=== PATIENT | male | born 1955 | race Caucasian/White ===

== ENCOUNTER 2019-05-22 15:08 | Outpatient (CLI) | payer MEDICARE, MEDICAID ==
--- NOTE | 2019-05-22 16:49 | MRI ---
MRI lumbar spine noncontrast: HISTORY: Lumbar spinal stenosis. Right leg pain. Numbness. COMPARISON: None. Correlation: Lumbar spine CT 05/18/2019 FINDINGS: Heterogeneous marrow signal intensity of the visualized vertebra likely due to senescent change. Type I and type II Modic changes at the L5-S1 disc space Appropriate signal intensity of the paraspinal muscles Appropriate signal intensity in the visualized solid organs Conus medullaris terminates at the mid T12 level T12-L1:Adequate disc hydration. No significant central canal stenosis or significant neural foraminal narrowing L1-L2:Adequate disc hydration. No significant central canal stenosis or significant neural foraminal narrowing L2-L3:Desiccation with mild loss of disc space height. Broad-based disc bulge minimally flattens the ventral thecal sac. Mild central canal stenosis. Bilaterally the neural foramina are patent. Trace amount of fluid in both facet joints. L3-L4:Mild loss of disc space height. Broad-based disc bulge flattens the thecal sac. Mild to moderat e central canal stenosis. Mild narrowing of both subarticular zones. Disc material abuts but does not obscure either traversing L4 nerve root. Mild facet hypertrophy. Small amount of fluid in both fa cet joints. There is a sequestered disc fragment in the right subarticular zone, superior to the L3-L4 disc space. This sequestered disc fragment measures 1.1 cm cranial caudal x 0.9 cm mediolateral x 0.6 cm anterior posterior. There is displacement of the traversing right L4 nerve root. Disc material encroaches into the right neural foramen related result in moderate to severe right neural f oraminal narrowing. Moderate left neural foraminal narrowing is also noted. L4-L5:Desiccation with moderate loss of disc space height. Broad-based disc bulge with a central disc protrusion. Associated T2 hyperintensity, compatible with annular fissure. Mild to moderate central canal stenosis. Narrowing of both subarticular zones, left greater than right. Mass effect wi th minimal obscuration the traversing right L5 nerve root. Mass effect and partial obscuration traversing left L5 nerve root. Moderate bilateral neural foraminal narrowing L5-S1:Severe loss of disc space height. Broad-based disc bulge without significant stenosis of the th ecal sac. Encroachment upon the right subarticular zone. Minimal mass effect without obscuration traversing right S1 nerve root. Left subarticular zone is unremarkable. Moderate to severe bilateral neural foraminal narrowing. IMPRESSION: 1. Degenerative disc disease at L3-L4 and L4-L5 described above. [id number] central canal steno sis 2. Moderate to severe right neural foramina due to sequestered disc fragment. Sequestered disc fragme nt also abuts and displaces the traversing right L4 nerve root. 3. Annular fissure at L4-L5. Left greater than right narrowing of the subarticular zone at L4-L5. Min imal obscuration of the traversing right L5 nerve root and partial obscuration traversing left L5 nerve root. Transcribed Date/Time: 05/22/2019 6:08 PM
== END 2019-05-22 15:09 | disposition home or self-care (01) ==
LOC: TBSIIMAG 15:08
PROVIDERS: ATTEND Internal Medicine
DX: M51.16 Intervertebral disc disorders with radiculopathy, lumbar region (principal); M48.061 Spinal stenosis, lumbar region without neurogenic claudication; M62.830 Muscle spasm of back; Q05.7 Lumbar spina bifida without hydrocephalus
CPT/HCPCS: 72148

== ENCOUNTER 2019-07-09 08:38 | Day surgery (SDC) | payer MEDICARE, MEDICAID ==
[2019-07-08 11:51] VITALS: BMI 16.9
[2019-07-09] MEDS ORDERED: Thrombin 5000 UNITS/5 ML VIAL ONE (09:08)
[2019-07-09] MEDS ORDERED: Sodium Chloride 0.9% 10 ML ONE (09:08)
[2019-07-09] MEDS ORDERED: Fentanyl 100 MCG/2 ML VIAL ONE ×5 (09:37→12:40)
[2019-07-09 09:42] LABS: Hemoglobin 14.6 g/dL (14.0-18.0); Mean Corpuscular HGB CONC 34.4 g/dL (32.0-36.0); Mean Corpuscular Hemoglobin 35.1 pg (27.0-31.0); Mean Platelet Volume 7.4 fL (7.4-10.4); Platelet Count 123 thou/uL (130-400); RBC Distribution Width 11.7 % (11.5-14.5); Red Blood Cell (RBC) Count 4.17 mill/uL (4.70-6.10); White Blood Cell (WBC) Count 9.7 thou/uL (4.8-10.8)
[2019-07-09 09:58] LABS: Anion Gap 12 mmol/L (10-20); BUN (Urea Nitrogen) 10 mg/dL (8.4-25.7); Calc. Creatinine Clearance 75 mL/min (70-130); Calcium 9.2 mg/dL (7.8-10.44); Carbon Dioxide 27 mmol/L (23-31); Chloride 97 mmol/L (98-107); Estimated GFR-MDRD Greater than 90; Glucose 86 mg/dL (80-115); PTT 29.5 SEC (22.9-36.1); Sodium 132 mmol/L (136-145)
[2019-07-09] MEDS ORDERED: Lidocaine 1% PF 5 ML VIAL ONE (10:02)
[2019-07-09] MEDS ORDERED: Ondansetron PF 4 MG/2 ML Vial ONE (10:02)
[2019-07-09] MEDS ORDERED: ePHEDrine/0.9% NaCl/PF SYRINGE 50 mg/10 ml ONE (10:02)
[2019-07-09] MEDS ORDERED: Dexamethasone 20 MG/5 ML VIAL ONE (10:02)
[2019-07-09] MEDS ORDERED: Rocuronium Bromide 10 MG/ML (10ML VIAL) ONE (10:02)
[2019-07-09] MEDS ORDERED: PROPOFOL 200 MG/20 ML VIAL ONE (10:02)
[2019-07-09] MEDS ORDERED: Meperidine HCl/PF 25 MG/ML VIAL SLOW IVP PRN (11:29)
[2019-07-09] MEDS ORDERED: PACU-Morphine 4MG/ML VIAL SLOW IVP PRN (11:29)
[2019-07-09] MEDS ORDERED: HYDROmorphone 2 MG/ML VIAL SLOW IVP PRN (11:29)
[2019-07-09] MEDS ORDERED: Promethazine HCl 25 MG/ML VIAL SLOW IVP PRN (11:29)
[2019-07-09] MEDS ORDERED: SUGAMMADEX SODIUM 200 MG/2 ML VIAL ONE (11:36)
[2019-07-09] MEDS ORDERED: Mag-Al 1200 mg/1200 mg/30 ML UDCUP PO PRN (12:05)
[2019-07-09] MEDS ORDERED: Bisacodyl 10 MG SUPP PR PRN (12:05)
[2019-07-09] MEDS ORDERED: Milk Of Magnesia 30 ML UDCUP PO PRN (12:05)
[2019-07-09] MEDS ORDERED: Acetaminophen/Codeine 30-300mg Tablet PO PRN (12:05)
[2019-07-09] MEDS ORDERED: traMADol HCl 50 MG TAB PO PRN (12:05)
[2019-07-09] MEDS ORDERED: Acetaminophen 325 MG TAB PO PRN (12:05)
[2019-07-09] MEDS ORDERED: Fleet Enema 133 ML BOT PR PRN (12:05)
[2019-07-09] MEDS ORDERED: Ondansetron PF 4 MG/2 ML Vial IVP PRN (12:05)
[2019-07-09] MEDS ORDERED: HYDROmorphone 0.5 MG/0.5 ML SYRINGE ONE ×3 (12:30→13:20)
--- NOTE | 2019-07-09 13:41 | OP ---
DATE OF PROCEDURE: 07/09/2019 BAND BIAS MACHINE OPERATOR: Eloy Barillas PA-C PREPROCEDURE DIAGNOSES: Low back and right lower extremity pain with lumbar disk extrusion with paracentral and lateral components L3-L4 and L4-L5. POSTPROCEDURE DIAGNOSES: Low back and right lower extremity pain with lumbar disk extrusion with paracentral and lateral components L3-L4 and L4-L5. PROCEDURES PERFORMED: 1. Right L3-L4, right L4-L5 hemilaminotomies, foraminotomies. 2. Right L3-L4 transfacet approach for foraminal disk extrusion to ensure freedom of the exiting right L3 nerve root. 3. Use of operative microscope for microdissection. DESCRIPTION OF PROCEDURE: After informed consent was obtained from the patient, the patient was brought to the OR. Proper patient, pause, and identification were carried out. He was placed under excellent general endotracheal anesthesia and positioned prone on the OR table. All appropriate points were padded. We identified L3, L4, L5 dorsal spines. A linear cem was drawn, and this region was sterilely cleansed, prepared, and draped. Proper patient, pause, and identification were carried out. The wound was then opened with a combination of sharp, monopolar, and blunt dissection, and the right L3-L4 and right L4-L5 hemilamina were exposed. Localization film confirmed our area of interest. We then performed a right L3-L4 and right L4-L5 hemilaminotomies and foraminotomies with excellent decompression of the common dural tube. We started at the right L4-L5 segment and paracentral diskectomy and ensured freedom of the traversing right L5 nerve root. We then turned our attention to the right L3-L4 segment performed a hemilaminotomy at that segment with paracentral diskectomy for decompression of the exiting right L4 nerve root. We then worked up into the foramen, the exiting right L3 nerve root, removed a large disk extrusion that was superiorly migrated. We ensured freedom of the exiting right L3 nerve root and its early takeoff in the traversing right L4 nerve root. Copious irrigation occurred throughout as did maximizing hemostasis. The wound was then closed in anatomic layers following sprinkling of vancomycin powder. The patient was emerged from anesthesia. Job ID: [id number]
[2019-07-09] MEDS: Morphine 2 MG/ML SYRINGE SLOW IVP PRN ×2 (14:05→17:30)
[2019-07-09] MEDS: Sodium Chloride 0.9% 1,000 ML IV SCH (14:08)
[2019-07-09] MEDS: tiZANidine HCl 4 MG TAB PO PRN ×2 (14:14→22:45)
[2019-07-09] MEDS: HYDROcodone/Acetaminophen 7.5/325 mg Tablet PO PRN ×3 (15:02→23:17)
[2019-07-09] MEDS: CEFAZOLIN 2 GM in Premix Bag 1 BAG IVPB SCH (17:05)
[2019-07-10] MEDS: CEFAZOLIN 2 GM in Premix Bag 1 BAG IVPB SCH (00:50)
[2019-07-10] MEDS: Morphine 2 MG/ML SYRINGE SLOW IVP PRN (01:55)
[2019-07-10] MEDS: HYDROcodone/Acetaminophen 7.5/325 mg Tablet PO PRN ×2 (06:06→10:25)
[2019-07-10] MEDS: Sodium Chloride 0.9% 1,000 ML IV SCH (06:07)
[2019-07-10] MEDS: tiZANidine HCl 4 MG TAB PO PRN (06:07)
[2019-07-10 07:43] VITALS: BP 142/67; TEMP 98
[2019-07-10] MEDS ORDERED: Losartan 25 MG TAB PO SCH (09:00)
--- NOTE | 2019-07-10 20:19 | PRG ---
DATE OF SERVICE: 07/10/2019 This is Eloy Barillas PA-C dictating a report for Prakash Varghese MD. This is a postoperative recheck. Mr. Estrada is postoperative day #1, having undergone multiple right hemilaminotomies, foraminotomies, and diskectomies at L3-L4 and L4-L5. The patient has considerable back pain postoperatively. He does have chronic back pain and does see Pain Management chronically. He has significant improvement in his right lower extremity symptoms as well as paresthesias. He has some continued paresthesias into the right medial thigh, but again he states that he feels as though he can move this leg easier. He has mild weakness throughout multiple myotomes of the bilateral lower extremities secondary to incisional back pain. The patient has met criteria for discharge. We have discussed extensively his postoperative pain management. We have been very clear that we will provide one prescription of [place], but any further hydrocodone prescriptions will need to come from his Pain Management and he may not receive medications from both providers. We have also provided some tizanidine. The patient will follow up as scheduled in the next 2-1/2 to 3 weeks. We have discussed extensive postoperative activity restrictions and wound care. The patient really overall is pleased with his outcome postoperatively and understands he needs continued time to heal, but he has had improvement in his symptoms postoperatively and this is good. Job ID: [id number]
== END 2019-07-10 11:15 | disposition home or self-care (01) ==
LOC: SDC 08:38 → 3SE 12:05 → SDC 07-10 11:15
PROVIDERS: ATTEND Surgery
PROC: 01NB0ZZ Release Lumbar Nerve, Open Approach (ICD-10-PCS; principal; 2019-07-09)
PROC: 0SB20ZZ Excision of Lumbar Vertebral Disc, Open Approach (ICD-10-PCS; 2019-07-09)
DX: M51.16 Intervertebral disc disorders with radiculopathy, lumbar region (principal); M48.061 Spinal stenosis, lumbar region without neurogenic claudication; F17.200 Nicotine dependence, unspecified, uncomplicated; Z79.899 Other long term (current) drug therapy
CPT/HCPCS: 76000; 80048; 85027; 85610; 85730; 93005; 93010; J0131; J0690; J1100; J1170; J2001; J2270; J2405; J2704; J3010; J3370; J3490

== ENCOUNTER 2019-08-27 13:20 | Day surgery (SDC) | payer MEDICARE, MEDICAID ==
[~2019-08-27 13:20] MED LIST: Dexamethasone 20 MG/5 ML VIAL ONE; Ketorolac Tromethamine 30 MG/ML VIAL ONE; Lidocaine 1% PF 5 ML VIAL ONE; Ondansetron PF 4 MG/2 ML Vial ONE; PHENYLEPHRINE-NS 100 MCG/ML 10 ML SYRINGE ONE; PROPOFOL 200 MG/20 ML VIAL ONE; Rocuronium Bromide 10 MG/ML (10ML VIAL) ONE; Succinylcholine Chloride 20 MG/ML 10 ml SYRINGE FS ONE
[2019-08-27 14:19] LABS: Prothrombin Time 13.2 SEC (12.0-14.7)
[2019-08-27 14:20] LABS: PTT 32.2 SEC (22.9-36.1)
[2019-08-27 14:28] LABS: Anion Gap 12 mmol/L (10-20); BUN (Urea Nitrogen) 17 mg/dL (8.4-25.7); Calc. Creatinine Clearance 62 mL/min (70-130); Calcium 8.6 mg/dL (7.8-10.44); Carbon Dioxide 29 mmol/L (23-31); Chloride 104 mmol/L (98-107); Estimated GFR-MDRD 86; Glucose 89 mg/dL (80-115); Potassium 3.8 mmol/L (3.5-5.1); Sodium 141 mmol/L (136-145)
[2019-08-27 14:44] LABS: #Lymphocytes 1.3 thou/uL (1.20-3.40); #Monocytes 1.1 thou/uL (0.11-0.59); #Neutrophils 10.3 thou/uL (1.40-6.50); %Basophils 0.3 % (0.0-1.0); %Eosinophils 0.2 % (0.0-10.0); %Lymphocytes 9.9 % (21.0-51.0); %Monocytes 8.2 % (0.0-10.0); %Neutrophils 81.3 % (42.0-75.0); Hemoglobin 13.8 g/dL (14.0-18.0); MDiff Complete? YES; Macrocytosis SLIGHT = 6-15 cells (100X) (0-5/hpf); Mean Corpuscular HGB CONC 33.6 g/dL (32.0-36.0); Mean Corpuscular Hemoglobin 34.9 pg (27.0-31.0); Mean Platelet Volume 9.2 fL (7.4-10.4); Platelet Count 58 thou/uL (130-400); Platelet Morphology Comment Appears Decreased; Polychromasia SLIGHT = 2-3 cells (100X) (0-2/hpf); RBC Distribution Width 11.7 % (11.5-14.5); Red Blood Cell (RBC) Count 3.96 mill/uL (4.70-6.10); White Blood Cell (WBC) Count 12.7 thou/uL (4.8-10.8)
[2019-08-27] MEDS ORDERED: Fentanyl 100 MCG/2 ML VIAL ONE ×3 (15:09→19:25)
[2019-08-27] MEDS ORDERED: Heparin 1,000 UNITS/ML VIAL ONE (15:42)
[2019-08-27] MEDS ORDERED: Promethazine HCl 25 MG/ML VIAL SLOW IVP PRN (15:57)
[2019-08-27] MEDS ORDERED: HYDROmorphone 2 MG/ML VIAL SLOW IVP PRN (15:57)
[2019-08-27] MEDS ORDERED: Meperidine HCl/PF 25 MG/ML VIAL SLOW IVP PRN (15:57)
[2019-08-27] MEDS ORDERED: Ondansetron HCl/PF 4 MG/2 ML Vial IVP PRN (15:57)
[2019-08-27] MEDS ORDERED: Sodium Chloride 0.9% 20 ML ONE (16:03)
[2019-08-27] MEDS ORDERED: Ondansetron PF 4 MG/2 ML Vial IVP PRN (17:00)
[2019-08-27] MEDS ORDERED: traMADol HCl 50 MG TAB PO PRN (17:00)
[2019-08-27] MEDS ORDERED: Fleet Enema 133 ML BOT PR PRN (17:00)
[2019-08-27] MEDS ORDERED: Bisacodyl 10 MG SUPP PR PRN (17:00)
[2019-08-27] MEDS ORDERED: Acetaminophen 325 MG TAB PO PRN (17:00)
[2019-08-27] MEDS ORDERED: Milk Of Magnesia 30 ML UDCUP PO PRN (17:00)
[2019-08-27] MEDS ORDERED: Mag-Al 1200 mg/1200 mg/30 ML UDCUP PO PRN (17:00)
[2019-08-27] MEDS ORDERED: Meperidine HCl/PF 25 MG/ML VIAL ONE (17:19)
[2019-08-27] MEDS ORDERED: HYDROmorphone 2 MG/ML VIAL ONE (20:46)
[2019-08-27] MEDS ORDERED: Cefepime 2 GM in Sodium Chloride 0.9% 100 ML IVPB SCH (21:00)
[2019-08-27 22:06] VITALS: BMI 16.5
[2019-08-27] MEDS: Vancomycin HCl 1 GM in Premix Bag 1 BAG IVPB SCH (22:55)
[2019-08-27] MEDS: Sodium Chloride 0.9% 1,000 ML IV SCH (22:55)
[2019-08-27] MEDS: HYDROcodone/Acetaminophen 7.5/325 mg Tablet PO PRN (23:33)
[2019-08-27] MEDS: metroNIDAZOLE 500 MG in Premix Bag 1 BAG IVPB SCH (23:35)
--- NOTE | 2019-08-28 00:05 | OP ---
DATE OF PROCEDURE: 08/27/2019 LOCATION: OR 12. INDICATION: Dirty infected wound. Modifier 78 should be added to this surgery as this was an unplanned return to the operating room in the global period. PREOPERATIVE DIAGNOSIS: Lumbar wound infection. POSTPROCEDURE DIAGNOSIS: Lumbar wound infection. GAS FLOW REGULATOR: Stephanie Carrizales PA-C. PROCEDURES PERFORMED: Opening of lumbar wound with intraoperative cultures, both superficial and deep with wound washout, irrigation, debridement, and re-closure. DESCRIPTION OF PROCEDURE: After informed consent was obtained from the patient, the patient was brought to the OR. Proper patient, pause, and identification were carried out. He was placed under excellent general endotracheal anesthesia and positioned prone on the OR table. All appropriate points were padded. We identified the midline wound. There was purulent material obviously coming from it. This area was sterilely cleansed, prepared and draped. Antibiotics were held. Proper patient, pause, and identification were carried out. The wound was then opened. Cultures taken above the fascia were considered superficial and cultures taken below the fascia were considered deep. There was purulent material both superficial and deep. There was no CSF leak. Copious irrigation with multiple liters of bacitracin occurred. The wound was then closed in anatomic layers following the sprinkle of vancomycin powder. The patient emerged from anesthesia. Job ID: [id number]
[2019-08-28] MEDS: HYDROcodone/Acetaminophen 7.5/325 mg Tablet PO PRN ×4 (04:09→17:02)
[2019-08-28] MEDS: Vancomycin HCl 1 GM in Premix Bag 1 BAG IVPB SCH ×2 (04:10→17:36)
[2019-08-28] MEDS: Sodium Chloride 0.9% 1,000 ML IV SCH ×2 (04:10→17:14)
[2019-08-28] MEDS: metroNIDAZOLE 500 MG in Premix Bag 1 BAG IVPB SCH ×3 (08:11→23:41)
[2019-08-28] MEDS: tiZANidine HCl 4 MG TAB PO PRN ×2 (08:11→17:02)
[2019-08-28] MEDS: Losartan 25 MG TAB PO SCH (08:13)
[2019-08-28] MEDS ORDERED: FLU VACC QS2019-20(6MOS UP)/PF 60 MCG/0.5 ML SYRINGE IM ONE (09:00)
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
--- NOTE | 2019-08-28 13:13 | PRG ---
DATE OF SERVICE: 08/28/2019 This is Eloy Barillas PA-C dictating a report for Prakash Varghese MD. POSTOPERATIVE RECHECK: Mr. Estrada is postoperative day #1 having undergone lumbar wound incision and drainage, exploration, culturing for purulent material, and re-closure. The patient states overall he is slowly feeling better. He does have tenderness at the back. He has improvement in the right anterior medial thigh pain. He is standing up using a cane next to the bed. Microbiology of the lumbar swabs shows a few gram-positive cocci in clusters, waiting for isolation. We have consulted Infectious Disease, though the patient remains on vancomycin, Flagyl, and cefepime. The patient will likely need a PICC line for antibiotic administration. Overall, the patient does feel as though he is improving slowly. We will continue to monitor the patient and follow up on his lumbar wound cultures as well as recommendations from Infectious Disease. The patient remains with good strength in the bilateral lower extremities. Job ID: [id number]
[2019-08-28] MEDS: Morphine 2 MG/ML SYRINGE SLOW IVP PRN (16:02)
[2019-08-28] MEDS: Cefepime 2 GM in Sodium Chloride 0.9% 100 ML IVPB SCH (16:52)
[2019-08-29 04:10] LABS: Vancomycin, Trough 12.8 ug/mL
[2019-08-29] MEDS: Vancomycin HCl 1 GM in Premix Bag 1 BAG IVPB SCH (04:25)
[2019-08-29] MEDS: Cefepime 2 GM in Sodium Chloride 0.9% 100 ML IVPB SCH ×2 (04:25→18:02)
[2019-08-29] MEDS: HYDROcodone/Acetaminophen 7.5/325 mg Tablet PO PRN ×2 (04:26→08:04)
[2019-08-29] MEDS: tiZANidine HCl 4 MG TAB PO PRN (08:04)
[2019-08-29] MEDS: Losartan 25 MG TAB PO SCH (08:08)
[2019-08-29] MEDS: metroNIDAZOLE 500 MG in Premix Bag 1 BAG IVPB SCH (08:44)
[2019-08-29] MEDS: Sodium Chloride 0.9% 1,000 ML IV SCH ×2 (09:30→21:47)
[2019-08-29] MEDS: Morphine 2 MG/ML SYRINGE SLOW IVP PRN ×3 (12:44→23:57)
[2019-08-29] MEDS: HYDROcodone/Acetaminophen 10/325 mg Tablet PO PRN ×3 (13:28→23:56)
--- NOTE | 2019-08-29 15:00 | SPC ---
SPC CVP LINE PICC INITIAL >5: 08/29/2019 12:00 AM INDICATION: postoperative back infection. PROCEDURE: Peripherally placed 45 cm single lumen power PICC line. PICC Line Placement: The left arm was prepped and draped in sterile fashion. One percent lidocaine was used for local anesthetic. Under fluoroscopic and ultrasound guidance, the left basilic vein was patent and accessed with a micr opuncture needle. A guide wire was then advanced into the left basilic vein. A vascular sheath was then advanced over a guide wire, and a single lumen PICC line was trimmed. The PICC line was th en advanced into the central venous system. A final placement film demonstrates the tip of the catheter terminated in the caval-atrial junction. After confirmation of the catheter position, the catheter was sutured in place at the skin entry site . There was no immediate complication. Total fluoroscopic time 0.4 minutes. Total exposure 878 mgray/sq cm IMPRESSION: Peripheral placement of a single lumen power PICC line into the left basilic vein using fluoroscopic and ultrasound guidance.
--- NOTE | 2019-08-29 15:00 | PRG ---
DATE OF SERVICE: 08/29/2019 Mr. Estrada is postoperative day #2 after undergoing a lumbar wound incision and drainage, exploration, culturing, washout, and re-closure. The patient states that he has significant amount of pain in his lower back. He denies any associated leg pain, paresthesias or weakness. He is observed sitting at the side of his bed when evaluated. Microbiology of the lumbar wound revealed positive growth for Staphylococcus aureus for both the supra and infrafascial specimens. It seems that the pathogen is TYLER (oxacillin-sensitive Staphylococcus aureus). We will defer to Dr. Castelan with Infectious Disease for appropriate antibiotic treatment. The patient is pending PICC line placement. The patient is requesting to go home. The hope is that he will be able to be discharged home tomorrow pending PICC line placement. Overall, he seems to be doing very well postoperatively, despite being upset at the situation. We will re-evaluate the patient tomorrow. Please call sooner for any neurologic changes or other concerns. Job ID: [id number]
[2019-08-29] MEDS ORDERED: Vancomycin HCl 1.25 GM in Sodium Chloride 0.9% 250 ML 250 ML IVPB SCH (18:00)
[2019-08-29] MEDS: cefTRIAXone\\ROCEPHIN 2 GM in Sodium Chloride 0.9% 100 ML IVPB SCH (18:20)
--- NOTE | 2019-08-29 18:32 | PRG ---
DATE OF SERVICE: 08/29/2019 This is Eloy Barillas PA-C dictating a report for Prakash Varghese MD. It has been brought to my attention that the patient has been rather hostile with the staff, using profanity and being very demanding his pain medication regimen. I had a long talk with the patient this afternoon and let him know that that behavior would not be tolerated by our team. Dr. Varghese has been updated in this regard, and I let the patient know that I understand that he is in pain; however, it is not appropriate for him to be abusive with our staff members and our team. He has a PICC line in place. I have let him know that our team is working to arrange antibiotics, and hopefully, we will be able to send him home tomorrow with appropriate antibiotic regimen. We have also adjusted his pain medications, and the patient seems to be much more relaxed, and back pain seems to be under good control. He has soreness in the left upper extremity after receiving PICC line placement and soreness into the right leg, but overall his back pain is the most bothersome to him. I have also counseled him extensively that he has had chronic back issues and it is rather unrealistic to believe that he would have complete resolution of his chronic back pain. Again, we are diligently working to help manage his pain, but I have again reiterated that he may not be inappropriate with our staff or our team. He is neurologically intact at this time. Please call with any changes in the patient's neurologic status. Otherwise, we will follow up on the patient tomorrow and likely plan for discharge. Job ID: [id number]
[2019-08-30] MEDS: HYDROcodone/Acetaminophen 10/325 mg Tablet PO PRN ×4 (05:29→18:17)
[2019-08-30] MEDS: Morphine 2 MG/ML SYRINGE SLOW IVP PRN ×5 (05:29→22:21)
[2019-08-30] MEDS: Sodium Chloride 0.9% 1,000 ML IV SCH (07:39)
[2019-08-30] MEDS: Losartan 25 MG TAB PO SCH (09:49)
--- NOTE | 2019-08-30 11:14 | PRG ---
DATE OF SERVICE: 08/30/2019 Yohan Estrada is 3 days out from superficial and deep Staphylococcus aureus infection. I discussed this case with Dr. Carrillo, and we will plan for discharge likely with ceftriaxone 2 g IV daily. This prescription will be written, and we will ensure before discharge that the microbe is sensitive to this antibiotic. The reason for once daily administration is I think this will be easier for the patient. Neurologically, he is intact. He has been ambulating with a straight cane. He is very frustrated that he has had to stay this long, but I have let him know that he is certainly high risk for infection given his immunocompromised state, in particular his untreated hepatitis C. He also has liver disease as well and does endorse frequent alcohol abuse. It does not appear as if there has been any IV drug abuse. Nevertheless, his radicular pain has improved and he will simply need time to heal this. We are going to extensively over postoperative restrictions of wound care. I have also let him know that his language of multiple expletives directed toward my team that we gave him this infection are completely unacceptable and unfounded. He states he will no longer use this language directed toward us. He will be discharged today. His wound is healing well. Job ID: [id number]
[2019-08-30] MEDS: cefTRIAXone\\ROCEPHIN 2 GM in Sodium Chloride 0.9% 100 ML IVPB SCH (18:15)
[2019-08-30] MEDS ORDERED: Labetalol HCl 100 MG/20 ML VIAL SLOW IVP PRN (21:01)
[2019-08-30] MEDS ORDERED: hydrALAZINE 20 MG/ML VIAL SLOW IVP PRN (21:02)
[2019-08-30 21:33] LABS: #Monocytes 1.1 thou/uL (0.11-0.59); %Basophils 0.6 % (0.0-1.0); %Eosinophils 0.5 % (0.0-10.0); %Lymphocytes 24.9 % (21.0-51.0); %Monocytes 13.4 % (0.0-10.0); %Neutrophils 60.7 % (42.0-75.0); Hemoglobin 12.2 g/dL (14.0-18.0); Mean Corpuscular HGB CONC 33.7 g/dL (32.0-36.0); Mean Corpuscular Hemoglobin 34.8 pg (27.0-31.0); Mean Platelet Volume 8.4 fL (7.4-10.4); Platelet Count 110 thou/uL (130-400); Platelet Morphology Comment Appears Decreased; RBC Distribution Width 11.6 % (11.5-14.5); White Blood Cell (WBC) Count 8.2 thou/uL (4.8-10.8)
[2019-08-30 21:41] LABS: ALT (SGPT) 97 U/L (8-55); AST (SGOT) 129 U/L (5-34); Alkaline Phosphatase 74 U/L (40-110); Anion Gap 12 mmol/L (10-20); BUN (Urea Nitrogen) 12 mg/dL (8.4-25.7); Bilirubin, Total 0.6 mg/dL (0.2-1.2); Calc. Creatinine Clearance 78 mL/min (70-130); Calcium 8.1 mg/dL (7.8-10.44); Carbon Dioxide 27 mmol/L (23-31); Chloride 107 mmol/L (98-107); Estimated GFR-MDRD Greater than 90; Globulin 3.3 g/dL (2.4-3.5); Glucose 127 mg/dL (80-115); Potassium 3.3 mmol/L (3.5-5.1); Protein, Total 6.3 g/dL (5.8-8.1); Sodium 143 mmol/L (136-145)
[2019-08-31] MEDS: HYDROcodone/Acetaminophen 10/325 mg Tablet PO PRN ×4 (00:39→13:35)
[2019-08-31] MEDS: Sodium Chloride 0.9% 1,000 ML IV SCH ×2 (01:51→15:00)
[2019-08-31] MEDS: Morphine 2 MG/ML SYRINGE SLOW IVP PRN (03:20)
[2019-08-31] MEDS ORDERED: Furosemide 40 MG/4 ML VIAL SLOW IVP SCH (04:45)
[2019-08-31] MEDS: Losartan 25 MG TAB PO SCH (09:09)
--- NOTE | 2019-08-31 09:11 | ULT ---
ULTRASOUND DOPPLER DUPLEX VENOUS BILATERAL LOWER EXTREMITIES: DATE: 08/31/2019 HISTORY: Bilateral lower extremity edema. TECHNIQUE: Grayscale, color-flow, and spectral analysis, of major veins of bilateral lower extremities. FINDINGS: There is demonstration of blood flow with normal compressibility, of the bilateral common femoral, pr ofunda femoral, greater saphenous, femoral, popliteal, and posterior tibial, veins. IMPRESSION: Negative. No deep venous thrombosis of bilateral lower extremities.
--- NOTE | 2019-08-31 10:17 | PDOC.HOSPP ---
- Subjective Encounter Date: 08/31/19 Encounter Time: 08:40 Subjective: Patient seen and examined. No new complaints. No overnight events - Objective Vital Signs & Weight: Vital Signs (12 hours) Temp Pulse Resp BP BP Pulse Ox 08/31/19 07:10 98.2 F 61 18 160/87 H 98 08/31/19 03:29 98 F 62 14 185/76 H 96 08/30/19 23:21 98.1 F 57 L 14 165/50 H 96 08/30/19 22:37 167/72 H Weight Admit Weight 115 lb Weight 115 lb I&O: 08/30/19 08/31/19 09/01/19 06:59 06:59 06:59 Intake Total 1939 1949 Output Total 200 Balance 1939 175 Result Diagrams: 08/30/19 21:12 08/30/19 21:12 Radiology Reviewed by me: Yes Hospitalist ROS - Review of Systems Eyes: denies: pain, vision change, conjunctivae inflammation, eyelid inflammation, redness, other ENT: denies: ear pain, ear discharge, nose pain, nose discharge, nose congestion , mouth pain, mouth swelling, throat pain, throat swelling, other Respiratory: denies: cough, dry, shortness of breath, hemoptysis, SOB with excertion, pleuritic pain, sputum, wheezing, other Cardiovascular: denies: chest pain, palpitations, orthopnea, paroxysmal noc. dyspnea, edema, light headedness, other Gastrointestinal: denies: nausea, vomiting, abdominal pain, diarrhea, constipation, melena, hematochezia, other Genitourinary: denies: dysuria, frequency, incontinence, hematuria, retention, other Musculoskeletal: denies: neck pain, shoulder pain, arm pain, back pain, hand pain, leg pain, foot pain, other - Medication Medications: Active Medications Generic Name Dose Route Start Last Admin Trade Name Freq PRN Reason Stop Dose Admin Hydrocodone Bitart/Acetaminophen 1 tab 08/29/19 13:01 08/31/19 09:53 [place] 10/325 PO 1 tab Q4H PRN Administration Moderate Pain (4-6) Sodium Chloride 1,000 mls @ 75 mls/hr 08/27/19 17:00 08/31/19 01:51 Normal Saline 0.9% IV Not Given .[id number] DEBBIE Ceftriaxone Sodium 2 gm/ 100 mls @ 200 mls/hr 08/29/19 18:00 08/30/19 18:15 Sodium Chloride IVPB 100 mls Q24HR@1800 DEBBIE Administration Losartan Potassium 25 mg 08/28/19 09:00 08/31/19 09:09 Cozaar PO 25 mg DAILY DEBBIE Administration Morphine Sulfate 2 mg 08/27/19 17:00 08/31/19 03:20 Morphine SLOW IVP 2 mg Q1H PRN Administration Severe Pain (7-10) Tizanidine HCl 4 mg 08/27/19 17:00 08/29/19 08:04 Zanaflex PO 4 mg TIDPRN PRN Administration Muscle Spasm - Exam General Appearance: NAD, awake alert Eye: PERRL, anicteric sclera ENT: normocephalic atraumatic, no oropharyngeal lesions Neck: supple, symmetric, no JVD, no thyromegaly Heart: RRR, no murmur, no gallops, no rubs Respiratory: CTAB, no wheezes, no rales, no ronchi Gastrointestinal: soft, non-tender, non-distended, normal bowel sounds Extremities: no cyanosis, no clubbing, no edema Skin: normal turgor, no lesions Neurological: no focal deficits Musculoskeletal: normal tone, normal strength Psychiatric: normal affect, normal behavior Hosp A/P (1) Lumbar surgical wound fluid collection Code(s): T81.89XA - OTH COMPLICATIONS OF PROCEDURES, NEC, INIT Status: Acute (2) Protein-calorie malnutrition, moderate Code(s): E44.0 - MODERATE PROTEIN-CALORIE MALNUTRITION Status: Acute (3) Hypertension Code(s): I10 - ESSENTIAL (PRIMARY) HYPERTENSION Status: Chronic Qualifiers: Hypertension type: essential hypertension Qualified Code(s): I10 - Essential (primary) hypertension (4) Macrocytic anemia Code(s): D53.9 - NUTRITIONAL ANEMIA, UNSPECIFIED Status: Chronic (5) Thrombocytopenia Code(s): D69.6 - THROMBOCYTOPENIA, UNSPECIFIED Status: Chronic (6) Chronic hepatitis C Code(s): B18.2 - CHRONIC VIRAL HEPATITIS C Status: Chronic Qualifiers: Hepatic coma status: without hepatic coma Qualified Code(s): B18.2 - Chronic viral hepatitis C - Plan old records reviewed/req, continue antibiotics, 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
[2019-08-31] MEDS: cefTRIAXone\\ROCEPHIN 2 GM in Sodium Chloride 0.9% 100 ML IVPB SCH (13:35)
[2019-08-31] MEDS ORDERED: Furosemide 20 MG/2 ML VIAL SLOW IVP SCH (14:00)
[2019-08-31 15:12] VITALS: BP 118/61; TEMP 97.4
--- NOTE | 2019-09-01 23:55 | EKG ---
Test Reason : PREOP Blood Pressure : / mmHG Vent. Rate : 078 BPM Atrial Rate : 078 BPM P-R Int : 136 ms QRS Dur : 078 ms QT Int : 380 ms P-R-T Axes : 067 070 064 degrees QTc Int : 433 ms Normal sinus rhythm Normal ECG When compared with ECG of 09-JUL-2019 09:20, No significant change was found Confirmed by Ponce BOWLING ([id number]) on 09/01/2019 11:54:52 PM Referred By: JOCELYNE Confirmed By:Ponce BOWLING
--- NOTE | 2019-09-02 07:28 | DIS ---
DATE OF ADMISSION: 08/27/2019 DATE OF DISCHARGE: 08/31/2019 DISCHARGE DISPOSITION: Home with outpatient IV antibiotic therapy. PRIMARY DISCHARGE DIAGNOSIS: Lumbar wound, status post I and D. SECONDARY DISCHARGE DIAGNOSES: History of chronic hepatitis C, hypertension, promoted protein-calorie malnutrition, macrocytic anemia, chronic thrombocytopenia. PRIMARY PROCEDURE/OPERATION: Lumbar wound infection required I and D. PICC line. RADIOLOGICAL INVESTIGATION: Ultrasound of lower extremity negative for DVT. DISCHARGE MEDICATIONS: The patient will continue [place] 7.5, one tablet q.6 hourly p.r.n.; losartan 25 mg p.o. daily. The patient will continue Rocephin 2 g IV daily. Duration of therapy as per Dr. Castelan. CONTRAINDICATION: None. CODE STATUS: Full code. INPATIENT CAT SKINNER: Dr. Castelan. Dr. Varghese was primary. Sound Team was consulted for medical comanagement. TEST RESULTS PENDING ON DISCHARGE: None. ALLERGIES: NO KNOWN DRUG ALLERGIES. DISCHARGE PLAN: Posthospital, the patient will follow up with Dr. Castelan in one week. The patient will follow up with Dr. Varghese as instructed. HOSPITAL COURSE: A 64-year-old male who was admitted by Dr. Varghese for infected lumbar wound, which required incision and debridement and subsequently culture grew Staph aureus which was MSSA. The patient was treated with Rocephin. Dr. Castelan was consulted and he recommended to continue Rocephin IV upon discharge. PICC line was placed and he will follow up with Dr. Castelan and neurosurgeon as an outpatient basis. While in hospital, the patient had mild lower extremity edema, but that was related with his hypoalbuminemia and we did ultrasound which was negative for any DVT. The patient does not require any Lasix therapy upon discharge and he will continue to eat proteinous food and he will follow up with his primary care physician. Job ID: [id number]
== END 2019-08-31 17:02 | disposition home or self-care (01) ==
LOC: SDC 13:20 → SURG B 21:53 → SDC 08-30 21:35
PROVIDERS: ATTEND Surgery
PROC: 0J970ZZ Drainage of Back Subcutaneous Tissue and Fascia, Open Approach (ICD-10-PCS; principal; 2019-08-27)
DX: T81.42XA Infection following a procedure, deep incisional surgical site, initial encounter (principal); B19.20 Unspecified viral hepatitis C without hepatic coma; F10.10 Alcohol abuse, uncomplicated; F17.200 Nicotine dependence, unspecified, uncomplicated; Z79.899 Other long term (current) drug therapy
CPT/HCPCS: 10180; 36569; 80048; 80053; 80202; 85025; 85610; 85652; 85730; 86140; 87070; 87075; 87077; 87186; 87205; 93005; 93970; C1751; 36415; 93010; J0692; J0696; J1100; J1170; J1644; J1885; J1940; J2001; J2175; J2270; J2405; J2704; J3010; J3370; J3490

== ENCOUNTER 2020-04-21 09:27 | Outpatient (CLI) | payer MEDICARE, MEDICAID ==
--- NOTE | 2020-04-21 11:27 | PET ---
EXAM: PET/CT HISTORY: Lung nodules TECHNIQUE: PET scanning with CT attenuation correction was performed from the base of the brain to the proximal thighs following the intravenous administration of 10.5 millicuries [id number]. COMPARISON: CT of the thorax without contrast from [facility] dated March 18, 2020. FINDINGS: Biodistribution:The biodistribution for the exam appears acceptable. Head and neck: There is appropriate background activity within the brain. No hypermetabolic lymphaden opathy or masses identified. Thorax: No hypermetabolic pulmonary lesion, pleural effusion or lymphadenopathy is present. There is some mild tree-in-bud nodularity involving the anterior segment of the left upper lobe that demonstrates some mild activity but no hypermetabolic activity. The more nodular branching opacity in the inferior lingula demonstrates no hypermetabolic uptake. There is scattered paraseptal emphysema. Abdomen and pelvis: There is expected background activity within the GI and systems. No hypermetab olic mass, lymphadenopathy or ascites is present. There is an intramuscular lipoma involving the left gluteal region with no associated hypermetabolic activity. This measures 3.1 cm in size. Osseous structures and skin: No hypermetabolic skin or osseous lesion is identified. IMPRESSION: No abnormal hypermetabolic uptake demonstrated. The tree-in-bud nodularity of the left upper lobe and nodular branching opacities seen inferior lingu la demonstrates no hypermetabolic uptake is likely related to peripheral small airways disease. Continued CT follow-up is recommended.
== END 2020-04-21 09:28 | disposition home or self-care (01) ==
LOC: PET 09:27
PROVIDERS: ATTEND Physician Assistant
DX: R91.8 Other nonspecific abnormal finding of lung field (principal)
CPT/HCPCS: 78815; A9552